=== PATIENT | female | born 2005 | race African-American/Black ===

== ENCOUNTER 2024-03-25 15:38 | Emergency (ER) | payer OTHER, SELFPAY ==
[2024-03-25 15:40] VITALS: BP 127/78; PULSE 79; RESP 20; O2SAT 99
--- NOTE | 2024-03-25 16:35 | ED_ITS ---
HPI - Female Genitourinary General Chief complaint: Vaginal Bleeding Stated complaint: vag bleed Time Seen by Provider: 03/25/24 16:35 Focused HPI: This is a 19 year old female that presents to the ER for abnormal uterine bleeding. Reports she finished a period on the and then started bleeding again last night. Reports the bleeding became more heavy which prompted her to be seen. She usually has regular monthly menstrual cycles. She is not on control. GENERAL: Well-appearing, well-nourished, and in no acute distress. HEAD: Normocephalic, atraumatic. CHEST: Clear to auscultation. ?No respiratory distress. HEART: Regular rate and rhythm.? NEURO: ?Alert and oriented x3. Patient screened in triage and initial orders placed.? ?Additional care and disposition to be based upon?diagnostic testing and treatment. Related Data Allergies Allergy/AdvReac Type Severity Reaction Status Date / Time No Known Allergies Allergy Verified 03/25/24 15:43 Course Course Emergency Course: Patient left after medical screening exam and before any further evaluation or management Vital Signs Vital signs: Vital Signs Pulse Rate 79 03/25/24 15:40 Respiratory Rate 20 03/25/24 15:40 Blood Pressure 127/78 03/25/24 15:40 Pulse Oximetry 99 03/25/24 15:40 Oxygen Delivery Room Air 03/25/24 15:40 Pulse Rate 79 03/25/24 15:40 Respiratory Rate 20 03/25/24 15:40 Blood Pressure 127/78 03/25/24 15:40 Pulse Oximetry 99 03/25/24 15:40 Oxygen Delivery Room Air 03/25/24 15:40 Discharge Plan Discharge Clinical Impression: Dysfunctional uterine bleeding Patient Disposition: Elopement After Seen by Prov Condition: Stable Follow-up/Referrals: PHYSICIAN,[employer] [Non-Staff] -
--- NOTE | 2024-03-25 21:40 | PC.NURSE ---
Called out for patient with no response. Pt not seen in waiting room.
== END 2024-03-25 18:00 | disposition left against medical advice (07) ==
PROVIDERS: Emergency Provider Physician Assistant; PCP Pediatrics
DX: N93.9 Abnormal uterine and vaginal bleeding, unspecified (principal)
CPT/HCPCS: 99281